=== PATIENT | female | born 1970 | race Two or more races ===

== ENCOUNTER 2019-01-18 18:01 | Emergency (ER) | payer OTHER ==
--- OUTSIDE RECORDS SUMMARY | 2019-01-18 18:07 | XMS REPORT | Continuity of Care Document ---
:1970 External Reference #:[id number] Author Name Lili Bennett Care Team Providers Name Role Phone Renata Alves MD Primary Care Physician Unavailable Payers Date Identification Numbers Payment Provider Subscriber Effective: 2012 Policy Number: [id number] [employer] Guillermo Reddy PayID: [id number] [address] [place] [address] Advance Directives Description No Information Available Problems Description No Active Problems Family History Date Family Member(s) Observation Comments : (age 45 Years) Father due to Cancer, Colon Onset: (age 67 Years) Mother Cancer Breast Mother 84 Mother Hypertension First Son 9 First Daughter 1 First Brother Alive And Well First Brother 45 First Sister Alive And Well First Sister 47 Social History Type Date Description Comments Sex Unknown Marital Status Occupation [employer]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, 3 ETOH Use Rarely consumes alcohol Tobacco Use Start: Unknown Patient has never smoked Smoking Status Reviewed: 12/29/18 Patient has never smoked Allergies, Adverse Reactions, Alerts Description No Known Drug Allergies Medications Active Medications SIG Qnty Indications Ordering Provider Date Valacyclovir HCL 1 by mouth 10tabs B00.1 Kriss Arreaga MD 12/29/2018 1gm every 12 hours Tablets till rash clears; max 3 days History Medications No Active Unknown 05/07/2016 - Medications 12/29/2018 Polymyxin 1-2 drops each eye 10ml 372.00 Dell German NP 01/05/2015 - B-Trimethoprim 4 times a day for 05/07/2016 7 days. if drastic 16405-3.1Unit/ML-% improvement within Solution 3 days, may decrease to twice daily. No Active Unknown 12/23/2014 - Medications 01/05/2015 No Active Unknown 05/12/2014 - Medications 05/12/2014 Ciprofloxacin HCL take one tablet 8tabs V65.49 Dell German, PING 05/12/2014 - twice a day for 2 06/11/2014 500mg Tablets days for severe diarrhea while travelling. No Active Unknown 09/28/2013 - Medications 09/28/2013 Doxycycline Hyclate 1 po bid x 7 days 14tabs 681.11 Sherri Peters, 2013 - DR Valadez 05/12/[address] Ortiz take 1 capsule by 40caps 465.9 Renata 08/21/2013 - 200mg mouth three times Cotton, M.D. 09/28/2013 Capsules a day if needed Azithromycin 2 tabs po on day 6tabs 465.9 Renata 08/21/2013 - 250mg 1; 1 tab po qd on Cotton, M.D. 09/28/2013 Tablets days 2-5 No Active Unknown 10/02/2012 - Medications 08/21/2013 Immunizations CPT Code Status Date Vaccine Lot # [id number] Given 08/05/2018 Influenza Virus Vaccine, Quadrivalent, Split, [id number] Preservative Free [id number] Given 06/08/2013 Flu Vaccine Split Virus Preservative Free For [id number] Indiv 3Yr Older [id number] Given 10/02/2012 Fluvirin Im 3Yrs And Older [id number] Vital Signs Date Vital Result Comment 12/29/2018 5:06pm Height 63 inches 5'3" Weight 111.00 lb Heart Rate 61 /min BP Systolic Sitting 104 mmHg BP Diastolic Sitting 66 mmHg Body Temperature 98.7 F O2 % BldC Oximetry 99 % BMI (Body Mass Index) 19.7 kg/m2 12/15/2018 4:58pm Height 63 inches 5'3" Weight 110.00 lb Heart Rate 58 /min BP Systolic Sitting 100 mmHg BP Diastolic Sitting 64 mmHg Body Temperature 98.8 F O2 % BldC Oximetry 99 % BMI (Body Mass Index) 19.5 kg/m2 08/05/2018 11:33am Height 63 inches 5'3" Weight 101.00 lb Heart Rate 63 /min BP Systolic Sitting 113 mmHg BP Diastolic Sitting 69 mmHg Body Temperature 98.0 F O2 % BldC Oximetry 96 % BMI (Body Mass Index) 17.9 kg/m2 05/02/2018 9:09am Height 63 inches 5'3" Weight 111.00 lb Heart Rate 62 /min BP Systolic Sitting 94 mmHg BP Diastolic Sitting 60 mmHg Respiratory Rate 16 /min O2 % BldC Oximetry 99 % on Ra BMI (Body Mass Index) 19.7 kg/m2 01/03/2017 8:39am Weight 113.50 lb Heart Rate 68 /min BP Systolic 100 mmHg BP Diastolic 58 mmHg Body Temperature 98.1 F O2 % BldC Oximetry 99 % 05/07/2016 1:31pm Height 62.75 inches 5'2.75" Weight 108.50 lb Heart Rate 71 /min BP Systolic 109 mmHg BP Diastolic 71 mmHg Body Temperature 97.9 F BMI (Body Mass Index) 19.4 kg/m2 01/05/2015 3:14pm Weight 115.50 lb Heart Rate 70 /min BP Systolic Sitting 110 mmHg BP Diastolic Sitting 69 mmHg Body Temperature 98.5 F 12/24/2014 2:57pm Height 63.75 inches 5'3.75" Weight 115.00 lb Heart Rate 56 /min BP Systolic 98 mmHg BP Diastolic 62 mmHg Body Temperature 99.0 F BMI (Body Mass Index) 19.9 kg/m2 05/12/2014 1:20pm Height 63.75 inches 5'3.75" Weight 108.00 lb Heart Rate 64 /min BP Systolic Sitting 106 mmHg BP Diastolic Sitting 60 mmHg Body Temperature 98.9 F BMI (Body Mass Index) 18.7 kg/m2 09/28/2013 4:27pm Weight 114.00 lb Heart Rate 64 /min BP Systolic 120 mmHg BP Diastolic 62 mmHg 08/21/2013 11:06am Weight 112.50 lb Heart Rate 72 /min BP Systolic 106 mmHg BP Diastolic 60 mmHg Body Temperature 98.3 F 06/08/2013 11:50am Weight 112.00 lb Heart Rate 60 /min BP Systolic 120 mmHg BP Diastolic 58 mmHg 10/02/2012 1:07pm Height 63 inches 5'3" Weight 113.25 lb Heart Rate 62 /min BP Systolic Sitting 114 mmHg BP Diastolic Sitting 60 mmHg BMI (Body Mass Index) 20.1 kg/m2 Results Test Date Facility Test Result H/L Range Note Comp Metabolic Panel 12/18/2018 [facility] Sodium 134 mmol/L Low 135-[address] [place] [address] [phone] Potassium 3.6 mmol/L N 3.5-5.0 Chloride 103 mmol/L N 101-111 Co2 Carbon Dioxide 26 mmol/L N 22-32 Anion Gap 5 mmol/L N 2-11 Glucose 123 mg/dL High 70-100 Blood Urea Nitrogen 13 mg/dL N 6-24 Creatinine 0.59 mg/dL N 0.51-0.95 BUN/Creatinine Ratio 22.0 High 8-20 Calcium 9.2 mg/dL N 8.6-10.3 Total Protein 7.1 g/dL N 6.4-8.9 Albumin 4.4 g/dL N 3.2-5.2 Globulin 2.7 g/dL N 2-4 Albumin/Globulin Ratio 1.6 N 1-3 Total Bilirubin 0.40 mg/dL N 0.2-1.0 Alkaline Phosphatase 38 U/L N 34-104 Alt 33 U/L N 7-52 Ast 20 U/L N 13-39 Egfr Non- 109.7 >60 Egfr 132.8 >60 1 Laboratory 12/18/2018 [facility] TSH (Thyroid 0.93 N 0.34- 5.60 test finding [address] Stim Horm) mcIU/mL [place], [place] [id number] [phone] Laboratory 06/26/2018 [facility] Surgical SEE RESULT 2, [address] [place] [address] [phone] Lipid Profile 04/29/2018 [facility] Triglycerides 87 mg/dL 4 (Trig/Chol/HDL [address] ) [place] [address] [phone] Cholesterol 145 mg/dL 5 HDL Cholesterol 58.5 mg/dL 6 LDL Cholesterol 69 mg/dL 7 Laboratory test 04/29/2018 [facility] Glucose 88 mg/dL N 70- 100 [address] [place] [address] [phone] Laboratory test 01/03/2017 [facility] Cytology SEE RESULT [address] [place] [address] [phone] HPV Rna Ww/Reflex Genotype Negative N Negative 10 Lipid Profile 04/20/2016 [facility] Triglycerides 67 mg/dL N 11 (Trig/Chol/HDL) [address] [place], [place] [address] [phone] Cholesterol 148 mg/dL N 12 HDL Cholesterol 67.3 mg/dL N 13 LDL Cholesterol 67 mg/dL N 14 Laboratory test 04/20/2016 [facility] Glucose 82 mg/dL N 70- 100 15 finding [address] [place] [address] [phone] Laboratory test 12/21/2014 [facility] Glucose 80 mg/dL N 70- 100 16, 17 finding [address] [place] [address] [phone] Lipid Profile 12/21/2014 [facility] Triglycerides 59 mg/dL N 18 (Trig/Chol/HDL) [address] [place] [address] [phone] Cholesterol 141 mg/dL N 19 HDL Cholesterol 59.0 mg/dL N 20 LDL Cholesterol 70 mg/dL N 21 Laboratory test 10/02/2012 [facility] Cytology RUN DATE: 22 finding 101 [facility] 10/03/ <[place] [address] NOTE> [phone] Laboratory test 09/18/2012 [facility] Glucose 81 mg/dL 70- 100 23 finding [address] [place] [address] [phone] Lipid Profile 09/18/2012 [facility] Triglycerides 55 mg/dL 40 -200 (Trig/Chol/HDL) [address] [place] [address] [phone] Cholesterol 164 mg/dL Less than 200 HDL Cholesterol 66 mg/dL High 40-60 24 Cholesterol/HDL Ratio 2.5 Average 1-4.44 LDL Cholesterol 87.0 mg/dL Less Than 100 25 1 Because ethnic data is not always readily available, this report includes an eGFR for both -Americans and non- Americans. The National Kidney Disease Education Program (NKDEP) does not endorse the use of the MDRD equation for patients that are not between the ages of 18 and 70, are , have extremes of body size, muscle mass, or nutritional status, or are non- or non-. According to the National Kidney Foundation, irrespective of diagnosis, the stage of the disease is based on the level of kidney function: Stage Description GFR(mL/min/1.73 m(2)) 1 Kidney damage with normal or decreased GFR 90 2 Kidney damage with mild decrease in GFR 60-89 3 Moderate decrease in GFR 30-59 4 Severe decrease in GFR 15-29 5 Kidney failure <15 (or dialysis) 2 [id number] 3 SEE RESULT BELOW Name: ELLIE AQUINO : [address]: Magda Contreras MD Acct: [id number] Unit: [id number] AGE: 48 Location: [facility] Re06/26/18 SEX: F Status: DEP REF SPEC: [id number] DARIO: 06/26/18-[address] [facility] [address]: Magda Post MD REQ: [id number] RECD: 06/26/189136 STATUS: JERAMY ZHONG DR: Renata Alves MD _ ORDERED: LEVEL 4/2 COMMENTS: [id number] FINAL DIAGNOSIS 1. Colon, transverse, biopsy: -- Tubular adenoma. -- No high grade dysplasia or malignancy. 2. Colon, rectum, biopsy: -- Hyperplastic polyp. CLINICAL HISTORY Father with colon cancer POST-OPERATIVE DIAGNOSIS Colonoscopy: to cecum; seeds but overall good; 4 mm transverse status post cold snare; 2 mm rectal status post jumbo; small internal hemorrhoids GROSS DESCRIPTION 1. The specimen is received in formalin labeled, Transverse Colon Polyp, and consists of a 0.3 x 0.2 x 0.1 cm aggregate of escobedo irregular soft tissue fragments which is submitted entirely in one cassette. 2. The specimen is received in formalin labeled, Biopsy Rectal Polyp, and consists of a 0.2 by less than 0.1 x 0.1 cm escobedo-pink irregular soft tissue fragment which is submitted entirely in one cassette. Signed by and Reported on: Chiqui Mayers MD 06/27/18 1302 END OF REPORT DEPARTMENT OF PATHOLOGY, [address] [place] [address] Tray Arroyo M.D. Director [facility] # [id number] 4 Desirable: <150 Borderline High: 150-199 High: 200-499 Very High: >500 5 Desirable: <200 Borderline High: 200-239 High: >239 6 Low: <40 Desirable: 40-60 High: >60 7 Desirable: <100 Near Optimal: 100-129 Borderline High: 130-159 High: 160-189 Very High: >189 8 FASTING 10 HOUR 9 SEE RESULT BELOW Name: ELLIE AQUINO : [address]: Renata Alves MD Acct: [id number] Unit: [id number] AGE: 46 Location: [facility] Re01/03/17 SEX: F Status: REG REF SPEC: [id number] DARIO: 01/03/[address]: Renata Alves MD REQ: [id number] RECD: 01/03/17 STATUS: SOUT _ ORDERED: TP IMAGE ANAL, HPV/Thin Prep, HPV 16/18 GENE COMMENTS: [id number] FINAL DIAGNOSIS Negative for Intraepithelial lesion or Malignancy A. Ectocervical/Endocervical Specimen Adequacy: Satisfactory of evaluation Transformation zone component identified Patient Information: HPV: High risk HPV RNA testing regardless of pap results. HPV 16/18 Genotype Reflex Actual Specimen Date: 01/03/17 Last Menstrual Date: 11/12/16 Spec Date if unknown: 2012 ?: N Post Menopausal?: N Hysterectomy?: N Previous Abnormal Pap Smears?:N Date Time Test Result Flag (u) Normal Range 01/03/17 0913 HPV RNA RFLX GE Negative Negative The high-risk HPV types detected by the assay include: 16, 18, 31, 33, 35, 39, 45, 51, 52, 56, 58, 59, 66, and 68. Signed (signature on file) AZUL Sandra(ASCP) 01/04 1600 This Pap test was evaluated with the assistance of the COM DEVPrep Test Imaging System. Due to cytologic findings at the bellstaff microscope, comprehensive manual rescreening by a Plan Manager may be required. The Pap Smear is a screening test designed to aid in the detection of premalignant and malignant conditions of the uterine cervix. It is not a diagnostic procedure and should not be used as the sole means of detecting cervical cancer. Both false- positive and false- negative reports do occur. Depending on your risk status, a Pap smear should be obtained and evaluated every 1-3 years. END OF REPORT * ML=Testing performed at Main Lab DEPARTMENT OF PATHOLOGY, [address] [place] [address] RUN DATE: 01/04/17 [facility] LAB LIVE PAGE 1 Patient: MILESELLIE [id number] (Continued) Tray Arroyo M.D. Director [facility] # [id number] 10 The high-risk HPV types detected by the assay include: 16, 18, 31, 33, 35, 39, 45, 51, 52, 56, 58, 59, 66, and 68. 11 Desirable <150 Borderline high 150-199 High 200-499 Very High >500 12 Desirable <200 Borderline high 200-239 High >239 13 Low <40 Desirable: 40-60 High: >60 14 Desirable: <100 mg/dL Near Optimal: 100-129 mg/dL Borderline High: 130-159 mg/dL High: 160-189 mg/dL Very High: >189 mg/dL 15 FASTING 12 HOUR 16 PT IS FASTING 17 PT IS FASTING 18 Desirable <150 Borderline high 150-199 High 200-499 Very High >500 19 Desirable <200 Borderline high 200-239 High >239 20 Low <40 Desirable: 40-60 High: >60 21 Desirable: <100 mg/dL Near Optimal: 100-129 mg/dL Borderline High: 130-159 mg/dL High: 160-189 mg/dL Very High: >189 mg/dL 22 RUN DATE: 10/03/12 [facility] LAB LIVE PAGE 1 RUN TIME: [address] [place] [address] Specimen Inquiry Name: ELLIE AQUINO : [address]: Amie Pedroza MD Acct: [id number] Unit: [id number] AGE: 42 Location: [facility]: 10/02/12 SEX: F Status: REG REF SPEC: [id number] DARIO: 10/02/12-[address] [facility] [address]: Amie Pedroza MD REQ: [id number] RECD: 10/03/12 STATUS: SOUT _ ORDERED: IMAGE ANALYSIS FINAL DIAGNOSIS Negative for Intraepithelial lesion or Malignancy A. Ectocervical/Endocervical Specimen Adequacy: Satisfactory of evaluation Transformation zone component identified Patient Information: HPV: Thin Layer Pap Test w/reflex to high risk HPV DNA testing when ASCUS Actual Specimen Date: 10/02/12 Last Menstrual Date: 09/18/12 Spec Date if unknown: 10/2011 Cautery: N IUD: N Lesion, grossly demonstrate: N ?: N Post Menopausal?: N Hysterectomy?: N Previous Abnormal Pap Smears?:N Signed (signature on file) AZUL Robert (ASCP) 10/03 1312 This Pap test was evaluated with the assistance of the COM DEVPrep Test Imaging System. Due to cytologic findings at the bellstaff microscope, comprehensive manual rescreening by a Plan Manager may be required. The Pap Smear is a screening test designed to aid in the detection of premalignant and malignant conditions of the uterine cervix. It is not a diagnostic procedure and should not be used as the sole means of detecting cervical cancer. Both false- positive and false- negative reports do occur. Depending on your risk status, a Pap smear shoudl be obtained and evaluated every 1-3 years. END OF REPORT * ML=Testing performed at Main Lab DEPARTMENT OF PATHOLOGY, [address] [place] [address] Tray Arroyo M.D. Director [facility] Permit #[id number] Fasting 24 HDL Interpretation: Undesirable: High Risk: Less than 40 MG/DL Desirable: Low Risk: Greater than 60 MG/DL 25 LDL Interpretation: Low Risk Optimal Level: LDL Less than 100 MG/DL Near or Above Optimal: LDL 100-129 MG/DL Borderline High Risk: LDL 130-159 MG/DL High Risk: LDL 160-189 MG/DL Very High Risk: LDL Greater than 189 MG/DL Procedures Date Code Description Status 08/08/2018 [id number] Mammogram Completed 06/26/2018 [id number] Colonoscopy Completed 02/27/2017 80348621 Mammogram Completed 07/13/2016 93530193 Mammogram Completed 05/17/2015 29846839 Mammogram Completed 09/08/2014 49057862 Mammogram Completed 08/02/2014 83528098 Mammogram Completed 07/10/2013 00153730 Colonoscopy Completed 07/06/2013 78328788 Mammogram Completed Encounters Type Date Location Provider Dx Diagnosis Office Visit 12/15/2018 Wero Arreaga MD K29.00 Acute gastritis 5:00p Medicine without bleeding N92.6 Irregular menstruation, unspecified Office Visit 08/05/2018 11:30a Wero Arreaga, N63.24 Unspecified lump Medicine in the left breast, lower inner quadrant Z23 Encounter for immunization N63.21 Unspecified lump in the left breast, upper outer quadrant Office Visit 05/02/2018 9:00a Wero Yanez Z00.00 Encntr for Rosalio Alves M.D. general adult medical exam w/o abnormal findings Z12.11 Encounter for screening for malignant neoplasm of colon R92.2 Inconclusive mammogram Office Visit 01/03/2017 8:40a Wero Yanez Z12.4 Encounter for Rosalio Alves M.D. screening for malignant neoplasm of cervix R92.2 Inconclusive mammogram Z12.31 Encntr screen mammogram for malignant neoplasm of breast Office Visit 05/07/2016 11:00a [facility] Renata Z00.00 Encntr for Rosalio Alves M.D. general adult medical exam w/o abnormal findings R92.2 Inconclusive mammogram Office Visit 01/05/2015 [facility] Dell German NP 372.00 Conjunctivitis Acute 3:20p Medicine Unspec Office Visit 12/24/2014 [facility] Renata V70.0 Examination General 3:00p Rosalio Alves M.D. Medical Routine AT Health Care Facility 443.0 Raynauds Syndrome Office Visit 05/12/2014 1:30p [facility] Dell German NP V65.49 Counseling Other Medicine Spec Office Visit 09/28/2013 4:20p [facility] Sherri Peters, 681.11 [facility] Paronychia Toe Office Visit 08/21/2013 11:00a [facility] Renata 465.9 URI Upper Rosalio Alves M.D. Respiratory Infections Acute Unspec Sites Office Visit 06/08/2013 11:40a [facility] Amie Pedroza, 611.9 Breast Disorders Medicine Jane, FACP Unspec V04.81 Need For Prophylactic Vaccination & Inoculation/Influenza Office Visit 10/02/2012 1:00p [facility] Amie Pedroza, V70.0 Examination Medicine Jane, FACP General Medical Routine AT Health Care Facility V72.31 Routine Double Corner Cutter Examination 272.0 Hypercholesterolemia Pure 611.9 Breast Disorders Unspec V04.81 Need For Prophylactic Vaccination & Inoculation/Influenza Plan of Treatment Future Appointment(s):05/07/2019 9:20 am - Renata Alves M.D. at [facility] Raifqjvx69/06/2019 - Kriss Arreaga MDK29.00 Acute gastritis without bleedingComments:Continue prilosec 20mg rtsleG27.1 Herpesviral vesicular dermatitisNew Medication:Valacyclovir HCL 1 gm - 1 by mouth every 12 hours till rash clears; max 3 days
--- OUTSIDE RECORDS SUMMARY | 2019-01-18 18:07 | XMS REPORT | Continuity of Care Document ---
:1970 External Reference #:[id number] Author Name OzChuye Care Team Providers Name Role Phone Renata Alves MD Primary Care Physician Unavailable Payers Date Identification Numbers Payment Provider Subscriber Effective: 2012 Policy Number: [id number] [employer] Guillermo Reddy PayID: [id number] [address] [place] [address] Family History Date Family Member(s) Observation Comments : (age 45 Years) Father due to Cancer, Colon Onset: (age 67 Years) Mother Cancer Breast Mother 84 Mother Hypertension First Son 9 First Daughter 1 First Brother Alive And Well First Brother 45 First Sister Alive And Well First Sister 47 Social History Type Date Description Comments Sex Unknown Marital Status Occupation [employer]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, 3 ETOH Use Rarely consumes alcohol Tobacco Use Start: Unknown Patient has never smoked Smoking Status Reviewed: 01/08/19 Patient has never smoked Allergies, Adverse Reactions, Alerts Description No Known Drug Allergies Medications Active Medications SIG Qnty Indications Ordering Provider Date Valacyclovir HCL 1 by mouth 10tabs B00.1 Kriss Arreaga MD 12/29/2018 1gm every 12 hours Tablets till rash clears; max 3 days Omeprazole 1 by mouth Unknown 10mg Capsules every day DR History Medications No Active Unknown 05/07/2016 - Medications 12/29/2018 Polymyxin 1-2 drops each eye 10ml 372.00 Dell German NP 01/05/2015 - B-Trimethoprim 4 times a day for 05/07/2016 7 days. if drastic 76370-8.1Unit/ML-% improvement within Solution 3 days, may decrease to twice daily. No Active Unknown 12/23/2014 - Medications 01/05/2015 No Active Unknown 05/12/2014 - Medications 05/12/2014 Ciprofloxacin HCL take one tablet 8tabs V65.49 Dell German NP 05/12/2014 - twice a day for 2 [...] CPT Code Status Date Vaccine Lot # [id number] Given 08/05/2018 Influenza Virus Vaccine, Quadrivalent, Split, [id number] Preservative Free 53514 Given 06/08/2013 Flu Vaccine Split Virus Preservative Free For [id number] Indiv 3Yr Older [id number] Given 10/02/2012 Fluvirin Im 3Yrs And Older [id number] Vital Signs Date Vital Result Comment 01/08/2019 2:32pm Height 63 inches 5'3" Weight 112.00 lb Heart Rate 68 /min BP Systolic Sitting 118 mmHg BP Diastolic Sitting 73 mmHg Body Temperature 98.4 F O2 % BldC Oximetry 100 % BMI (Body Mass Index) 19.8 kg/m2 12/29/2018 5:06pm Height 63 inches 5'3" Weight [...] Date Facility Test Result H/L Range Note Xray 01/08/2019 [facility] US Transvaginal <pending> [place] [address] [phone] Comp Metabolic 12/18/2018 [facility] Sodium 134 mmol/L Low 135 -145 [place] [address] [phone] Potassium 3.6 mmol/L N 3.5-5.0 Chloride 103 [...] >60 Egfr 132.8 >60 1 Laboratory 12/18/2018 [facility] TSH (Thyroid 0.93 N 0.34- 5.60 test finding Stim Horm) mcIU/mL [place], [place] [address]83 [phone] Laboratory 06/26/2018 [facility] Surgical SEE RESULT 2, 3 test finding [place] [address] [phone] Lipid Profile 04/29/2018 [facility] Triglycerides 87 mg/dL 4 (Trig/Chol/HDL ) [place] [address] [phone] Cholesterol 145 mg/dL 5 HDL Cholesterol 58.5 mg/dL 6 LDL Cholesterol 69 mg/dL 7 Laboratory test 04/29/2018 [facility] Glucose 88 mg/dL N 70- 100 8 [place] [address] [phone] Laboratory test 01/03/2017 [facility] Cytology SEE RESULT [address] [place] [address] [phone] HPV Rna Ww/Reflex Genotype Negative N Negative 10 Laboratory test 04/20/2016 [facility] Glucose 82 mg/dL N 70- 100 11 finding [address] [place] [address] [phone] Lipid Profile 04/20/2016 [facility] Triglycerides 67 mg/dL N 12 (Trig/Chol/HDL) [address] [place] [address] [phone] Cholesterol 148 mg/dL N 13 HDL Cholesterol 67.3 mg/dL N 14 LDL Cholesterol 67 mg/dL N 15 Lipid Profile 12/21/2014 [facility] Triglycerides 59 mg/dL N 16, 17 (Trig/Chol/HDL) [address] [place] [address] [phone] Cholesterol 141 mg/dL N 18 HDL Cholesterol 59.0 mg/dL N 19 LDL Cholesterol 70 mg/dL N 20 Laboratory test 12/21/2014 [facility] Glucose 80 mg/dL N 70- 100 21 finding [address] [place] [address] [phone] Laboratory test 10/02/2012 [facility] Cytology RUN DATE: 22 finding 101 [facility] 10/03/ <[place] [address] NOTE> [phone] Laboratory test 09/18/2012 [facility] Glucose 81 mg/dL 70- 100 23 finding [address] [place] [address] [phone] Lipid Profile 09/18/2012 [facility] Triglycerides 55 mg/dL 40 -200 (Trig/Chol/HDL) [address] [place] [address] [phone] Cholesterol 164 mg/dL Less than 200 HDL [...] 5 Kidney failure <15 (or dialysis) 2 [id number] 3 SEE RESULT BELOW Name: ELLIE AQUINO : [address]: Magda Contreras MD Acct: [id number] Unit: [id number] AGE: 48 Location: [facility] Re06/26/18 SEX: F Status: DEP REF SPEC: [id number] DARIO: 06/26/18-[address] [facility] [address]: Magda Post MD REQ: [id number] RECD: 06/26/18-0553 STATUS: JERAMY ZHONG DR: Renata Alves MD _ ORDERED: LEVEL 4/2 COMMENTS: [id number] FINAL DIAGNOSIS 1. Colon, transverse, biopsy: -- [...] 1302 END OF REPORT DEPARTMENT OF PATHOLOGY, [address] [place] [address] Tray Arroyo M.D. Director [facility] # [id number] 4 Desirable: <150 Borderline High: 150-199 High: 200-499 Very High: >500 5 Desirable: <200 Borderline High: 200-239 High: >239 6 Low: <40 Desirable: 40-60 High: >60 7 Desirable: <100 Near Optimal: 100-129 Borderline High: 130-159 High: 160-189 Very High: >189 8 FASTING 10 HOUR 9 SEE RESULT BELOW Name: ELLIE AQUINO : [address]: Renata Alves MD Acct: [id number] Unit: [id number] AGE: 46 Location: [facility] Re01/03/17 SEX: F Status: REG REF SPEC: [id number] DARIO: 01/03/[address] [facility] [address]: Renata Alves MD REQ: [id number] RECD: 01/03/17 STATUS: SOUT _ ORDERED: TP IMAGE ANAL, HPV/Thin Prep, HPV 16/18 GENE COMMENTS: [id number] FINAL DIAGNOSIS Negative for Intraepithelial lesion or [...] was evaluated with the assistance of the Cigital Test Imaging System. Due to cytologic findings at the heel former microscope, comprehensive manual rescreening by a Internal Controls Specialist may be required. The Pap Smear is [...] performed at Main Lab DEPARTMENT OF PATHOLOGY, [address] [place] [address] RUN DATE: 01/04/17 [facility] LAB LIVE PAGE 1 Patient: ELLIE AQUINO [id number] (Continued) Tray Arroyo M.D. Director [facility] # [id number] 10 The high-risk HPV types detected by the assay include: 16, 18, 31, 33, 35, 39, 45, 51, 52, 56, 58, 59, 66, and 68. 11 FASTING 12 HOUR 12 Desirable <150 Borderline high 150-199 High 200-499 Very High >500 13 Desirable <200 Borderline high 200-239 High >239 14 Low <40 Desirable: 40-60 High: >60 15 Desirable: <100 mg/dL Near Optimal: 100-129 mg/dL Borderline High: 130-159 mg/dL High: 160-189 mg/dL Very High: >189 mg/dL 16 PT IS FASTING 17 Desirable <150 Borderline high 150-199 High 200-499 Very High >500 18 Desirable <200 Borderline high 200-239 High >239 19 Low <40 Desirable: 40-60 High: >60 20 Desirable: <100 mg/dL Near Optimal: 100-129 mg/dL Borderline High: 130-159 mg/dL High: 160-189 mg/dL Very High: >189 mg/dL 21 PT IS FASTING 22 RUN DATE: 10/03/12 [facility] LAB LIVE PAGE 1 RUN TIME: [address] [place] [address] Specimen Inquiry Name: ELLIE AQUINO : [address]: Amie Pedroza MD Acct: [id number] Unit: [id number] AGE: 42 Location: [facility] Re10/02/12 SEX: F Status: REG REF SPEC: [id number] DARIO: 10/02/12-[address] [facility] [address]: Amie Pedroza MD REQ: [id number] RECD: 10/03/12 STATUS: SOUT _ ORDERED: IMAGE [...] was evaluated with the assistance of the SymphogenPrep Test Imaging System. Due to cytologic findings at the heel former microscope, comprehensive manual rescreening by a Internal Controls Specialist may be required. The Pap Smear is [...] performed at Main Lab DEPARTMENT OF PATHOLOGY, [address] [place] [address] Tray Arroyo M.D. Director [facility] Permit #[id number] 23 Fasting 24 HDL Interpretation: Undesirable: High Risk: Less than 40 MG/DL Desirable: Low Risk: Greater than 60 MG/DL 25 LDL Interpretation: Low Risk Optimal Level: LDL Less than 100 MG/DL Near or Above Optimal: LDL 100-129 MG/DL Borderline High Risk: LDL 130-159 MG/DL High Risk: LDL 160-189 MG/DL Very High Risk: LDL Greater than 189 MG/DL Procedures Date Code Description Status 08/08/2018 [id number] Mammogram Completed 06/26/2018 [id number] Colonoscopy Completed 02/27/2017 [id number] Mammogram Completed 07/13/2016 73475182 Mammogram Completed 05/17/2015 44778278 Mammogram Completed 09/08/2014 83284012 Mammogram Completed 08/02/2014 92938394 Mammogram Completed 07/10/2013 52819956 Colonoscopy Completed 07/06/2013 05855804 Mammogram Completed Encounters Type Date Location Provider Dx Diagnosis Office Visit 12/29/2018 Wero Arreaga MD K29.00 Acute gastritis 5:00p Medicine without bleeding B00.1 Herpesviral vesicular dermatitis N92.6 Irregular menstruation, unspecified Office Visit 12/15/2018 5:00p Wero Arreaga K29.00 Acute gastritis Medicine MD without bleeding N92.6 Irregular menstruation, unspecified Office Visit 08/05/2018 11:30a [facility] Gregory Krissmark Arreaga, N63.24 Unspecified lump Medicine MD in the left breast, lower inner quadrant Z23 Encounter for immunization N63.21 Unspecified lump in the left breast, upper outer quadrant Office Visit 05/02/2018 9:00a [facility] Internal Renata Z00.00 Encntr for Rosalio Alves M.D. general adult medical exam w/o abnormal findings Z12.11 Encounter for screening for malignant neoplasm of colon R92.2 Inconclusive mammogram Office Visit 01/03/2017 8:40a [facility] Internal Renata Z12.4 Encounter for Medicine Jane Alves screening for malignant neoplasm of cervix R92.2 Inconclusive mammogram Z12.31 Encntr screen mammogram for malignant neoplasm of breast Office Visit 05/07/2016 11:00a [facility] Internal Renata Z00.00 Encntr for Rosalio Alves M.D. general adult medical exam w/o abnormal findings R92.2 Inconclusive mammogram Office Visit 01/05/2015 [facility] Internal Dell German NP 372.00 Conjunctivitis Acute 3:20p Medicine Unspec Office Visit 12/24/2014 [facility] Internal Renata V70.0 Examination General 3:00p Rosalio Alves M.D. Medical Routine AT Health Care Facility 443.0 Raynauds Syndrome Office Visit 05/12/2014 1:30p [facility] Internal Dell German NP V65.49 Counseling Other Medicine Spec Office Visit 09/28/2013 4:20p [facility] Internal Sherri Peters, 681.11 [facility] Paronychia Toe Office Visit 08/21/2013 11:00a [facility] Internal Renata 465.9 URI Upper Rosalio Alves M.D. Respiratory Infections Acute Unspec Sites Office Visit 06/08/2013 11:40a [facility] Internal Amie Pedroza, 611.9 Breast Disorders Medicine Jane, FACP Unspec V04.81 Need For Prophylactic Vaccination & Inoculation/Influenza Office Visit 10/02/2012 1:00p [facility] Internal Amie Pedroza, V70.0 Examination Medicine Jane, FACP General Medical Routine AT Health Care Facility V72.31 Routine Tandem Operator Examination 272.0 Hypercholesterolemia Pure 611.9 Breast Disorders Unspec V04.81 Need For Prophylactic Vaccination & Inoculation/Influenza Plan of Treatment Future Appointment(s):01/29/2019 2:00 pm - Renata Alves M.D. at [facility] Internal Ikxzcnlu34/12/2019 9:20 am - Renata Alves M.D. at [facility] Internal Qkakxmmx69/16/2019 - Renata Alves M.D.R19.07 Generalized intra-abdominal and pelvic swelling, mass and luComments:Start MiraLaxPush waterFollow up:3 weeks
--- OUTSIDE RECORDS SUMMARY | 2019-01-18 18:07 | XMS REPORT | Continuity of Care Document ---
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 if drastic 99965-9.1Unit/ML-% improvement within Solution 3 days, may decrease [...] CPT Code Status Date Vaccine Lot # 32802 Given 08/05/2018 Influenza Virus Vaccine, Quadrivalent, Split, 74bl5 Preservative Free 94633 Given 06/08/2013 Flu Vaccine Split Virus Preservative Free For [id number] Indiv 3Yr Older Q2037 Given 10/02/2012 Fluvirin Im 3Yrs And Older [id number] Vital Signs Date Vital Result Comment 12/29/2018 [...] H/L Range Note Comp Metabolic Panel 12/18/2018 [facility] Sodium 134 mmol/L Low 135-[address] [place] [address] [phone] Potassium 3.6 mmol/L N 3.5-5.0 Chloride 103 [...] >60 Egfr 132.8 >60 1 Laboratory 12/18/2018 [facility] TSH (Thyroid 0.93 N 0.34- 5.60 test finding [address] Stim Horm) mcIU/mL [place], [place] [address] [phone] Laboratory 06/26/2018 [facility] Surgical SEE RESULT 2, [address] Interface [place] [address] [phone] Lipid Profile 04/29/2018 [facility] Triglycerides 87 mg/dL 4 (Trig/Chol/HDL [address] ) [place] [address] [phone] Cholesterol 145 mg/dL 5 HDL Cholesterol 58.5 mg/dL 6 LDL Cholesterol 69 mg/dL 7 Laboratory test 04/29/2018 [facility] Glucose 88 mg/dL N 70- 100 [address] [place] [address] [phone] Laboratory test 01/03/2017 [facility] Cytology SEE RESULT [address] [place] [address] [phone] HPV Rna Ww/Reflex Genotype Negative N Negative 10 Lipid Profile 04/20/2016 [facility] Triglycerides 67 mg/dL N 11 (Trig/Chol/HDL) [address] [place], [place] [address] [phone] Cholesterol 148 mg/dL N 12 HDL Cholesterol 67.3 mg/dL N 13 LDL Cholesterol 67 mg/dL N 14 Laboratory test 04/20/2016 [facility] Glucose 82 mg/dL N 70- 100 15 finding [address] [place] [address] [phone] Laboratory test 12/21/2014 [facility] Glucose 80 mg/dL N 70- 100 16, 17 finding [address] [place] [address] [phone] Lipid Profile 12/21/2014 [facility] Triglycerides 59 mg/dL N 18 (Trig/Chol/HDL) [address] [place] [address] [phone] Cholesterol 141 mg/dL N 19 HDL Cholesterol 59.0 mg/dL N 20 LDL Cholesterol 70 mg/dL N 21 Laboratory test 10/02/2012 [facility] Cytology RUN DATE: 22 finding 101 [facility] 10/03/ <[place] [address] NOTE> [phone] Laboratory test 09/18/2012 [facility] Glucose 81 mg/dL 70- 100 23 finding [address] [place] [address] [phone] Lipid Profile 09/18/2012 [facility] Triglycerides 55 mg/dL 40 -200 (Trig/Chol/HDL) [address] [place] [address] [phone] Cholesterol 164 mg/dL Less than 200 HDL [...] 5 Kidney failure <15 (or dialysis) 2 [id number] 3 SEE RESULT BELOW Name: ELLIE AQUINO : [address]: Magda Contreras MD Acct: [id number] Unit: [id number] AGE: 48 Location: [facility] Re06/26/18 SEX: F Status: DEP REF SPEC: [id number] DARIO: 06/26/18-[address] [facility] [address]: Magda Post MD REQ: [id number] RECD: 06/26/183493 STATUS: JERAMY ZHONG DR: Renata Alves MD _ ORDERED: LEVEL 4/2 COMMENTS: [id number] FINAL DIAGNOSIS 1. Colon, transverse, biopsy: -- [...] 1302 END OF REPORT DEPARTMENT OF PATHOLOGY, [address] [place] [address] Tray Arroyo M.D. Director [facility] # [id number] 4 Desirable: <150 Borderline High: 150-199 High: 200-499 Very High: >500 5 Desirable: <200 Borderline High: 200-239 High: >239 6 Low: <40 Desirable: 40-60 High: >60 7 Desirable: <100 Near Optimal: 100-129 Borderline High: 130-159 High: 160-189 Very High: >189 8 FASTING 10 HOUR 9 SEE RESULT BELOW Name: ELLIE AQUINO : [address]: Renata Alves MD Acct: [id number] Unit: [id number] AGE: 46 Location: [facility] Re01/03/17 SEX: F Status: REG REF SPEC: [id number] DARIO: 01/03/[address]: Renata Alves MD REQ: [id number] RECD: 01/03/17 STATUS: SOUT _ ORDERED: TP IMAGE ANAL, HPV/Thin Prep, HPV 16/18 GENE COMMENTS: [id number] FINAL DIAGNOSIS Negative for Intraepithelial lesion or [...] was evaluated with the assistance of the Community Veterinary PartnersPrep Test Imaging System. Due to cytologic findings at the shear tender microscope, comprehensive manual rescreening by a Med Asst may be required. The Pap Smear is [...] performed at Main Lab DEPARTMENT OF PATHOLOGY, [address] [place] [address] RUN DATE: 01/04/17 [facility] LAB LIVE PAGE 1 Patient: MILESELLIE [id number] (Continued) Tray Arroyo M.D. Director [facility] # [id number] 10 The high-risk HPV types detected by [...] High: >189 mg/dL 22 RUN DATE: 10/03/12 [facility] LAB LIVE PAGE 1 RUN TIME: [address] [place] [address] Specimen Inquiry Name: ELLIE AQUINO : [address]: Amie Pedroza MD Acct: [id number] Unit: [id number] AGE: 42 Location: [facility]: 10/02/12 SEX: F Status: REG REF SPEC: [id number] DARIO: 10/02/12-[address] [facility] [address]: Amie Pedroza MD REQ: [id number] RECD: 10/03/12 STATUS: SOUT _ ORDERED: IMAGE [...] was evaluated with the assistance of the Community Veter[employer] PartnersPrep Test Imaging System. Due to cytologic findings at the shear tender microscope, comprehensive manual rescreening by a Med Asst may be required. The Pap Smear is [...] performed at Main Lab DEPARTMENT OF PATHOLOGY, [address] [place] [address] Tray Arroyo M.D. Director [facility] Permit #[id number] 23 Fasting 24 HDL Interpretation: Undesirable: High Risk: Less than 40 MG/DL Desirable: Low Risk: Greater than 60 MG/DL 25 LDL Interpretation: Low Risk Optimal Level: LDL Less than 100 MG/DL Near or Above Optimal: LDL 100-129 MG/DL Borderline High Risk: LDL 130-159 MG/DL High Risk: LDL 160-189 MG/DL Very High Risk: LDL Greater than 189 MG/DL Procedures Date Code Description Status 08/08/2018 [id number] Mammogram Completed 06/26/2018 22579013 Colonoscopy Completed 02/27/2017 [id number] Mammogram Completed 07/13/2016 05430937 Mammogram Completed 05/17/2015 24895249 Mammogram Completed 09/08/2014 57254380 Mammogram Completed 08/02/2014 95670164 Mammogram Completed 07/10/2013 74820994 Colonoscopy Completed 07/06/2013 73064122 Mammogram Completed Encounters Type Date Location Provider Dx Diagnosis Office Visit 12/29/2018 Wero Arreaga MD K29.00 Acute gastritis 5:00p Medicine without bleeding B00.1 Herpesviral vesicular dermatitis N92.6 Irregular menstruation, unspecified Office Visit 12/15/2018 5:00p [facility] Internal Kriss Arreaga K29.00 Acute gastritis Medicine MD without bleeding N92.6 Irregular menstruation, unspecified Office Visit 08/05/2018 11:30a [facility]ero Arreaga N63.24 Unspecified lump Medicine in the left breast, lower inner quadrant Z23 Encounter for immunization N63.21 Unspecified lump in the left breast, upper outer quadrant Office Visit 05/02/2018 9:00a [facility] Yanez Z00.00 Encntr for Rosalio Alves M.D. general adult medical exam w/o abnormal findings Z12.11 Encounter for screening for malignant neoplasm of colon R92.2 Inconclusive mammogram Office Visit 01/03/2017 8:40a [facility] Internal Renata Z12.4 Encounter for Rosalio Alves M.D. screening for malignant neoplasm of cervix R92.2 Inconclusive mammogram Z12.31 Encntr screen mammogram for malignant neoplasm of breast Office Visit 05/07/2016 11:00a [facility] Internal Renata Z00.00 Encntr for Rosalio Alves M.D. general adult medical exam w/o abnormal findings R92.2 Inconclusive mammogram Office Visit 01/05/2015 [facility] Internal Dell German NP 372.00 Conjunctivitis Acute 3:20p Medicine Unspec Office Visit 12/24/2014 [facility] Internal Renata V70.0 Examination General 3:00p Rosalio Alves M.D. Medical Routine AT Health Care Facility 443.0 Raynauds Syndrome Office Visit 05/12/2014 1:30p [facility] Internal Dell German NP V65.49 Counseling Other Medicine Spec Office Visit 09/28/2013 4:20p [facility] Internal Sherri Peters, 681.11 Onychia & Medicine N.P. Paronychia Toe Office Visit 08/21/2013 11:00a [facility] Internal Renata 465.9 URI Upper Rosalio Alves M.D. 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 at [facility] Internal Cconyywf06/06/2019 - Kriss Arreaga MDK29.00 Acute gastritis without bleedingComments:Continue prilosec 20mg mndooO57.1 Herpesviral vesicular dermatitisNew Medication:Valacyclovir HCL 1 gm - 1 by mouth every 12 hours till rash clears; max 3 daysN92.6 Irregular menstruation, unspecifiedComments: Perimenopause. Continue to monitor
--- NOTE | 2019-01-18 18:16 | UC ---
Complaint Female HPI - HPI Summary HPI Summary: 48 yo female presents requesting test. She tells me that about a month and half ago she went to her PCP for abdominal bloating, nausea, and vaginal spotting. She was given omeprazole, which helped. Since that time she has noticed that her lower abdomen is enlarging. She took a urine test and found it to be positive x2. She is here concerned that she is . She has had no more vaginal bleeding. Denies abdominal pain, vomiting , dysuria, or fevers. LMP was in 09/2018 - History Of Current Complaint Stated Complaint: TEST Time Seen by Provider: 01/18/19 18:16 Hx Obtained From: Patient Onset/Duration: Gradual Onset - Allergies/Home Medications Allergies/Adverse Reactions: Allergies Allergy/AdvReac Type Severity Reaction Status Date / Time No Known Allergies Allergy Verified 01/18/19 18:23 Home Medications: Home Medications Omeprazole CAP (NF) [Prilosec CAP* 20 MG] 20 mg PO DAILY 01/18/19 [History Confirmed 01/18/19] PMH/Surg Hx/FS Hx/Imm Hx - Additional Past Medical History Additional PMH: None - Surgical History Surgical History: None - Social History Lives: With Family Alcohol Use: Occasionally Substance Use Type: None Smoking Status (MU): Never Smoked Tobacco Review of Systems All Other Systems Reviewed And Are Negative: Yes Constitutional: Positive: Other - Positive test Skin: Positive: Negative Respiratory: Positive: Negative Cardiovascular: Positive: Negative Gastrointestinal: Positive: Negative Neurovascular: Positive: Negative Neurological: Positive: Negative Psychological: Positive: Negative Physical Exam - Summary Physical Exam Summary: GENERAL: NAD. WDWN. No pain distress. SKIN: No streaking, bleeding, or drainage. NECK: Supple. Nontender. No lymphadenopathy. CHEST: No accessory muscle use. Breathing comfortably and in no distress. CV: Pulses intact. Cap refill <2seconds ABDOMEN: Gravid appearing lower abdomen. NTTP. Positive bowel sounds. NEURO: Alert. PSYCH: Age appropriate behavior. Triage Information Reviewed: Yes Vital Signs: Vital Signs: Temp Pulse Resp BP Pulse Ox 98.2 F 63 14 114/63 100 01/18/19 18:18 01/18/19 18:18 01/18/19 18:18 01/18/19 18:18 01/18/19 18:18 Laboratory Tests 01/18/19 18:33 POC Ur Test Positive A Vital Signs Reviewed: Yes Complaint Female Dx - Course Course Of Treatment: POC positive. Will draw for blood HCG and have her f/u with OBGYN for further discussion of options and eval. - Differential Dx/Diagnosis Provider Diagnosis: Discharge - Sign-Out/Discharge Documenting (check all that apply): Patient Departure All imaging exams completed and their final reports reviewed: No Studies - Discharge Plan Condition: Stable Disposition: HOME Patient Education Materials: (ED) Referrals: Renata Alves MD [Primary Care Provider] - Rosalia Benavides MD [Medical Doctor] - As Soon As Possible Additional Instructions: If you develop a fever, shortness of breath, chest pain, new or worsening symptoms - please call your PCP or go to the ED immediately. Your urine test was positive in the clinic. We have drawn a blood test to confirm this. Please follow up with OBGYN to discuss options and for further evaluation - Billing Disposition and Condition Condition: STABLE Disposition: Home
[2019-01-18 18:24] VITALS: BP 114/63
--- NOTE | 2019-01-18 19:12 | CONSULT ---
Consult Consult: I supervised the care of the PA and performed a hx and physical on this patient. Hx: +preg test at age 48. Growing lower abdomen. No menses since ~ Sep. PE: Gravid appearing abd. Nontender Plan: + Urine preg. Bedside US performed. 14w1d by BPD, 14w3d by femur length. F/U OBGYN.
== END 2019-01-18 19:03 | disposition home or self-care (01) ==
LOC: UCEAST 18:01
DX: Z32.01 Encounter for pregnancy test, result positive (principal)
CPT/HCPCS: 36415; 84702; 99212; G0463

== ENCOUNTER 2019-07-13 08:56 | Inpatient (IN) | payer OTHER ==
[~2019-07-13 08:56] MED LIST: ceFOXitin 2 GM IVPREMIX* 2 GM/50 ML BAG IVPB SCH
--- OUTSIDE RECORDS SUMMARY | 2019-07-13 08:59 | XMS REPORT | Continuity of Care Document ---
:1970 External Reference #:[id number] Author Name Rosalia Benavides MD Address [address] [place] [address] Care Team Providers Name Role Phone Chiqui Alves Care Team Information Active Directory Specialist [phone] Problems Description No Information Available Social History Type Date Description Comments Sex Unknown Cigarette Use Does Not Smoke Cigarettes ETOH Use Does Not Drink Alcohol Recreational Drug Use Does Not Use Drugs Tobacco Use Start: Unknown Patient has never smoked Smoking Status Reviewed: 07/06/19 Patient has never smoked Allergies, Adverse Reactions, Alerts Description No Known Drug Allergies Medications Active Medications SIG Qnty Indications Ordering Provider Date 1 by mouth every Unknown Tablets day Medications Administered in Office Medication SIG Qnty Indications Ordering Provider Date PT SCRN Tbco Id as Non User Rosalia Benavides MD 07/06/2019 Injection Immunizations CPT Code Status Date Vaccine Lot # [id number] Given 05/25/2019 Tetnus, Diptheria Toxoids And Acellular Pertussis, 2E3EH PT > 7Yrs Old [id number] Given 05/25/2019 Influenza Vaccine Quadrivalent Preser/Antibiotic [id number] Free Im Use Vital Signs Date Vital Result Comment 07/06/2019 2:57pm BP Systolic 104 mmHg BP Diastolic 58 mmHg Height 62.5 inches 5'2.50" Weight 150.00 lb BMI (Body Mass Index) 27.0 kg/m2 3 Parity 2 01/26/2019 1:15pm BP Systolic 128 mmHg BP Diastolic 72 mmHg Height 62.5 inches 5'2.50" Weight 114.00 lb BMI (Body Mass Index) 20.5 kg/m2 3 Parity 2 Results Test Acquired Date Facility Test Result H/L Range Note Laboratory test 06/29/2019 [facility] Genital For SEE RESULT [address] [place] [address] GRP B Strep BELOW [phone] Only Laboratory test 04/20/2019 [facility] Glucose 1 HR 98 mg/dL Normal 70-160 [address] [place] [address] Post Prandial [phone] CBC With No 04/20/2019 [facility] White Blood 10.1 Normal 3.5- 10.8 [place] [address] Count 10^3/uL [phone] Red Blood Count 3.87 10^6/uL Normal 3.70-4.87 Hemoglobin 12.9 g/dL Normal 12.0-16.0 Hematocrit 38 % Normal 35-47 Mean Corpuscular Volume 97 fL Normal 80-97 Mean Corpuscular Hemoglobin 33 pg High 27-31 Mean Corpuscular HGB Conc 34 g/dL Normal 31-36 Red Cell Distribution Width 14 % Normal 10-15 Platelet Count 216 10^3/uL Normal 150-450 Mean Platelet Volume 10.0 fL Normal 7.4-10.4 Urine Culture And 03/23/2019 [facility] Urine Culture SEE RESULT 3 [place] [address] BELOW [phone] GC/Chlamydia Dna 02/20/2019 [facility] Chlamydia [place] [address] trachomatis Rna [phone] Neisseria gonorrhoeae (GC) Rna Negative Negative Urine Drug 02/20/2019 [facility] Urine Amphetamine Negative ng/ mL 4 Comp [address] [place] [address] [phone] Urine Barbiturates Negative ng/mL 5 Urine Benzodiazepines Negative ng/mL 6 Urine Cocaine Negative ng/mL 7 Urine Phencyclidine Negative ng/mL Cutoff: 25 Urine Tetrahydrocannabinol Negative ng/mL Cutoff: 50 8 Creatinine, Urine 56.7 mg/dL Specific [place] 1.015 pH 5.4 Oxidants Negative 9 Adulterants Comment Normal Codeine, Ur Not Detected ng/mL Cutoff: 25 10 Jzeuogp-1-yoel-glucuronide, Ur Not Detected ng/mL 11 Morphine, Ur Not Detected ng/mL Cutoff: 25 12 Pzfdvrki-3-yjob-glucuronide, U Not Detected ng/mL 13 6-monoacetylmorphine, Ur Not Detected ng/mL Cutoff: 25 14 Hydrocodone, Ur Not Detected ng/mL Cutoff: 25 15 Norhydrocodone, Ur Not Detected ng/mL Cutoff: 25 16 Dihydrocodeine, Ur Not Detected ng/mL Cutoff: 25 17 Hydromorphone, Ur Not Detected ng/mL Cutoff: 25 18 Tpwjwvryykokz9dmogmcwnssqsijy Not Detected ng/mL 19 Oxycodone, Ur Not Detected ng/mL Cutoff: 25 20 Noroxycodone, Ur Not Detected ng/mL Cutoff: 25 21 Oxymorphone, Ur Not Detected ng/mL Cutoff: 25 22 Oiqpftxzjwo-8-jcxl-glucuronide Not Detected ng/mL 23 Noroxymorphone, Ur Not Detected ng/mL Cutoff: 25 24 Fentanyl, Ur Not Detected ng/mL Cutoff: 2 25 Norfentanyl, Ur Not Detected ng/mL Cutoff: 2 26 Meperidine, Ur Not Detected ng/mL Cutoff: 25 27 Normeperidine, Ur Not Detected ng/mL Cutoff: 25 28 Naloxone, Ur Not Detected ng/mL Cutoff: 25 29 Boauhopp-4-tekv-glucuronide, U Not Detected ng/mL 30 Methadone, Ur Not Detected ng/mL Cutoff: 25 31 Eddp, Ur Not Detected ng/mL Cutoff: 25 32 Propoxyphene, Ur Not Detected ng/mL Cutoff: 25 33 Norpropoxyphene, Ur Not Detected ng/mL Cutoff: 25 34 Tramadol, Ur Not Detected ng/mL Cutoff: 25 35 O-desmethyltramadol, Ur Not Detected ng/mL Cutoff: 25 36 Tapentadol, Ur Not Detected ng/mL Cutoff: 25 37 N-desmethyltapentadol, Ur Not Detected ng/mL Cutoff: 50 38 Vohogvuuqu-llgf-nznqnxndfre, U Not Detected ng/mL 39 Buprenorphine, Ur Not Detected ng/mL Cutoff: 5 40 Norbuprenorphine, Ur Not Detected ng/mL Cutoff: 5 41 Norbuprenorphine glucuronide Not Detected ng/mL Cutoff: 20 42 Opioid Interpretation See Comment 43 HIV 4TH 01/26/2019 [facility] HIV 4th [place] [address] Generation [phone] Varicella Zoster 01/26/2019 [facility] Varicella-Zoste Positive [address] [place] [address] r IgG Antibody [phone] Varicella IgG Antibody Index 3.5 45 Laboratory test 01/26/2019 [facility] TSH 2.05 mcIU/mL Normal 0.34-5.60 [address] [place] [address] [phone] T4 Free 0.68 ng/dL Normal 0.61-1.12 47 Afp,Screen 01/26/2019 [facility] Results Summary [place] [address] [phone] Neural Tube Defect Estimate SEE BELOW 48 Collection Date 01/26/19 Maternal Date of 74 Calculated Age At NORMAN 49 years Maternal Weight 114 lbs Insulin Dependent Diabetes No Current Cigarette Smoking Stat non-smoker Patient Race non-Black Number of Fetuses 1 Number of Chorions Monochorionic Ivf N o Prev Preg w/Neural Tube Defect N o Patient/Father of Baby Has NTD N o Initial Or Repeat Testing Initial testing NORMAN by U/S Scan 07/19/19 Physician Phone Number [phone] GA On Collection by U/S SEE BELOW wk,d 49 GA Used In Risk Estimate Scan estimate Afp 32.2 ng/mL Afp MoM 0.95 MoM <2.50 Interpretation See Comment 50 Additional Comments See Comment 51 Recommended Follow Up None. General Test Information See Comment 52 Lead 01/26/2019 [facility] Lead,Venous, B < 1.0 g/dL 0.0- 4.9 [address] [place] [address] [phone] Venous/Capillary Venous Submitting Laboratory Phone [phone] 54 Type And Screen 01/26/2019 [facility] Patient [place] [address] [phone] Antibody Screen NEGATIVE CBC With No 01/26/2019 [facility] White Blood 8.9 10^3/uL Normal 3.5-10.8 [place] [address] Count [phone] Red Blood Count 3.85 10^6/uL Normal 3.70-4.87 Hemoglobin 12.5 g/dL Normal 12.0-16.0 Hematocrit 37 % Normal 35-47 Mean Corpuscular Volume 96 fL Normal 80-97 Mean Corpuscular Hemoglobin 33 pg High 27-31 Mean Corpuscular HGB Conc 34 g/dL Normal 31-36 Red Cell Distribution Width 14 % Normal 10.5-15 Platelet Count 246 10^3/uL Normal 150-450 Mean Platelet Volume 9.5 fL Normal 7.4-10.4 PNL No 01/26/2019 [facility] Rubella Screen Immune Immune [address] [place] [address] [phone] Hemoglobin A1c 4.8 % Normal 4.0-5.6 56 Hepatitis B Surface Ag Negative Negative 57 Syphillis Igg W/Reflex RPR Negative Negative 58 1 SEE RESULT BELOW Name: ELLIE WREN : [address]: Ángel Moore DO Acct: [id number] Unit: [id number] AGE: 49 Location: [facility] Re06/29/19 SEX: F Status: REG REF SPEC: [id number] DARIO: 06/29/[address]: Ángel Moore DO REQ: [id number] RECD: 06/29/19125 STATUS:COMP _ SOURCE: CER/VAG/RE SPDESC: ORDERED: Grp B Strp Scrn COMMENTS: [id number] QUERIES: Is Patient Penicillin Allergic? N Is patient penicillin allergic and/or sensitivities needed? N Provider Requisition # [id number]_ Procedure Result Reported Site Group B Strep Culture Screen Final 07/01/19- 1037 ML Group B Strep Screen Negative * ML - Main Lab . END OF REPORT DEPARTMENT OF PATHOLOGY, [address] [place] [address] Tray Arroyo M.D. Director [facility] # [id number] 2 [id number] SEE RESULT BELOW Name: ELLIE WREN : [address]: Joi Chowdhury CNM Acct: [id number] Unit: [id number] AGE: 48 Location: [facility] Re03/23/19 SEX: F Status: REG REF SPEC: [id number] DARIO: 03/23/19-[address]: Joi Chowdhury [facility] REQ: [id number] RECD: 03/24/19 STATUS: COMP _ SOURCE: URINE SPDCONTRA [facility]: ORDERED: Urine Culture COMMENTS: [id number] Urine Source: Random Procedure Result Reported Site Urine Culture Final 03/25/19- 1258 ML No Growth (<1,000 CFU/mL) * ML - Main Lab . END OF REPORT DEPARTMENT OF PATHOLOGY, [address] [place] [address] Tray Arroyo M.D. Director [facility] # [id number] 4 REFERENCE VALUE Cutoff: 500 5 REFERENCE VALUE Cutoff: 200 6 REFERENCE VALUE Cutoff: 100 7 REFERENCE VALUE Cutoff: 150 8 ADDITIONAL INFORMATION This report is intended for use in clinical monitoring or management of patients. It is not intended for use in employment-related testing. 9 REFERENCE VALUE Cutoff: 200 mg/L 10 Tylenol 3 11 Metabolite of codeine REFERENCE VALUE Cutoff: 100 12 Syeda Charles, Contin; Also a minor metabolite (10%) of codeine and can be seen in low concentrations (<2,000 ng/mL) with poppy seed ingestion. 13 Metabolite of morphine REFERENCE VALUE Cutoff: 100 14 Metabolite of heroin 15 Lortab, [place], Vicodin; Also a very minor metabolite of codeine and impurity (<1%) of oxycodone. 16 Metabolite of hydrocodone 17 Metabolite of hydrocodone 18 Dilaudid, Exalgo; Also a metabolite of hydrocodone and a minor (<5%) metabolite of morphine. 19 Metabolite of hydromorphone REFERENCE VALUE Cutoff: 100 20 Endocet, Percocet, Oxycontin 21 Metabolite of oxycodone 22 Numorphan, Opana; Also a metabolite of oxycodone. 23 Metabolite of oxymorphone REFERENCE VALUE Cutoff: 100 24 Metabolite of oxymorphone 25 Actiq, Duragesic, Fentora 26 Metabolite of fentanyl 27 Demerol 28 Metabolite of meperidine 29 Narcan 30 Metabolite of naloxone REFERENCE VALUE Cutoff: 100 31 Dolophine 32 Metabolite of methadone 33 Darvon, Darvocet 34 Metabolite of propoxyphene 35 Tradol, Ultram, Ultracet 36 Metabolite of tramadol 37 Nucynta 38 Metabolite of tapentadol 39 Metabolite of tapentadol REFERENCE VALUE Cutoff: 100 40 Buprenex, Suboxone 41 Metabolite of buprenorphine 42 Metabolite of buprenorphine 43 No opioids were detected. The absence of expected drug(s) and/or drug metabolite(s) may indicate non-compliance, altered pharmacokinetics, inappropriate timing of specimen collection relative to drug administration, diluted/adulterated urine, or limitations of testing. ADDITIONAL INFORMATION This test was developed and its performance characteristics determined by [facility] in a manner consistent with CLIA requirements. This test has not been cleared or approved by the U.S. Food and Drug Administration. Test Performed by: [facility] [email or web address] [address] 44 Results suggest response to immunization or prior exposure to the virus. REFERENCE VALUE Vaccinated: Positive (>=1.1 AI) Unvaccinated: Negative (<=0.8 AI) 45 Test Performed by: [facility] [address] 46 [id number] RESULT: 49 RESULT: 50 RESULT: Screen negative for neural tube defects. 51 RESULT: Reviewed by Kalen Mccloud M.D. 52 This screening provides an estimation of risk, not a diagnosis. Incorrect or incomplete information may significantly alter results. Results may be unreliable in twin pregnancies with a demise. Results are not available for pregnancies with triplets and higher-order multiples. A positive result occurs when the AFP MoM equals or exceeds 2.5. Screen results and family history influence individual risk. If there is a family history of a neural tube defect, chromosome abnormality, or other inherited condition, consider the option of a genetic consultation. For further information, please contact the maternal screening laboratory at . ADDITIONAL INFORMATION This test was developed and its performance characteristics determined by [facility] in a manner consistent with CLIA requirements. This test has not been cleared or approved by the U.S. Food and Drug Administration. Test Performed by: [facility] - [address] [address] 53 ADDITIONAL INFORMATION Testing performed by Inductively Coupled Plasma-Mass Spectrometry (ICP-MS). This test was developed and its performance characteristics determined by [facility] in a manner consistent with CLIA requirements. This test has not been cleared or approved by the U.S. Food and Drug Administration. 54 Test Performed by: [facility] [address] [place] [address] 55 [id number] Therapeutic target for the treatment of diabetes mellitus patients is <7% HBA1C, and in selective patients <6.0%. Please refer to [place] [employer] diabetic care guidelines for further information. 57 [id number] Procedures Date Code Description Status 07/06/2019 08111 Non-Stress Test Completed 02/20/2019 01260 Echography Uterus Complete Completed 01/26/2019 10827 Echography Uterus Limited Completed 08/26/2016 10022310 Mammogram Completed Medical Devices Description No Information Available Encounters Type Date Location Provider Dx Diagnosis Office Visit 07/06/2019 [facility] Rosalia Benavides MD Z01.818 Encounter for other 11:30a preprocedural examination O34.211 Matern care for low transverse scar from prev del O09.523 Supervision of elderly multigravida, third trimester Assessments Date Code Description Provider 07/06/2019 Z01.818 Encounter for other preprocedural Rosalia Benavides MD examination 07/06/2019 O34.211 Maternal care for low transverse scar from Rosalia Benavides MD previous delivery 07/06/2019 O09.523 Supervision of elderly belindaavida, third Rosalia Benavides MD trimester 06/29/2019 O09.523 Supervision of elderly multigravida, third Ángel Moore JR, DO trimester 06/19/2019 O09.523 Supervision of elderly ednagravida, third Rosalia Benavides MD trimester 06/19/2019 O34.211 Maternal care for low transverse scar from Rosalia Benavides MD previous delivery 05/25/2019 Z23 Encounter for immunization Ángel Moore JR, DO 05/25/2019 O09.523 Supervision of elderly ednagravida, third Ángel Moore JR, DO trimester 05/11/2019 O09.523 Supervision of elderly ednagravida, third Joi Chowdhury CNM trimester 04/20/2019 Z36.9 Encounter for screening, Lynne Gonsalves MD unspecified 04/20/2019 Z34.83 Encounter for supervision of other normal Saji Vigil M.D. , third trimester 04/20/2019 Z36.9 Encounter for screening, Laboratory unspecified 03/23/2019 O09.522 Supervision of elderly multigravida, second JEANE Mustafa trimester 02/20/2019 O09.522 Supervision of elderly multigravida, second Rosalia Benavides MD trimester 02/20/2019 Z36.3 Encounter for screening for Rosalia Benavides MD malformations 02/20/2019 Z36.3 Encounter for screening for Ultrasounds malformations 01/26/2019 Z36.9 Encounter for screening, Lynne Gonsalves MD unspecified 01/26/2019 Z34.82 Encounter for supervision of other normal Lynne Gonsalves MD , second trimester 01/26/2019 O09.522 Supervision of elderly multigravida, second Renee Addison CNM trimester 01/26/2019 Z36.9 Encounter for screening, Laboratory unspecified 01/26/2019 Z34.82 Encounter for suprvsn of normal , Ultrasounds second trimester Plan of Treatment Future Appointment(s):08/17/2019 1:30 pm - Rosalia Benavides MD at [facility] 11:15 am - Cyndi Muñoz CNM at [facility]07/13/2019 11:00 am - Rosalia Benavides MD at [facility] O R109/12/2018 11:00 am - Lynne Gonsalves MD at [place] 5862409/05/2018 - Rosalia Benavides MDZ01.818 Encounter for other preprocedural examinationComments:We discussed risks of surgery for delivery including but not limited to injury to bowel, bladder, ureters, nerves, and blood vessels. We discussed bleeding and infection risks and possible need for transfusion. Patient understands risk of wound complications including breakdown and hernia. She understands the risk of deep venous thrombosis and sequelae. Reasons for surgery and the benefits derived were reviewed. Patient understands the alternatives and has had opportunity to ask questions with appropriate answers given.We discussed permanent sterilization, to be done at the time of . She understands there is a failure rate of less than 1% , and that if she does get , it is more likely to be ectopic. She desires to proceed with the BTL.Length of typical hospital stayand full recovery if no complications occur discussed.Preventative measures for certain complications such as infection and DVT were discussed.Postop medications ( percocet, ibuprofen) will be sent to pharmacy when she is discharged as needed.Pt is to not eat after midnight the night before.O34.211 Maternal care for low transverse scar from previous cpmojtncX07.523 Supervision of elderly multigravida, third trimester Functional Status Description No Information Available Mental Status Description No Information Available Referrals Refer to Reason for Referral Status Appt Date Center Patient desires amnio due to age, Patient Declined 2018 carrier screening, uncertainty of NIPT [address] [place].[address] [phone]
[2019-07-13] MEDS ORDERED: Morphine PF AMP (0.5MG/ML)* 5 MG/10 ML AMP ONE (10:32)
[2019-07-13] MEDS ORDERED: fentaNYL* 50 MCG/ML 2 ML VIAL (100 MCG VIAL) ONE (10:32)
[2019-07-13] MEDS ORDERED: Phenylephrine 40 MCG/ML SYRINGE ONE (10:48)
[2019-07-13] MEDS ORDERED: EPHEDrine (Pressors)* 50 MG/ML VIAL ONE (10:49)
[2019-07-13] MEDS ORDERED: OXYTOCIN* 10 UNITS/ML 1 ML VIAL ONE (10:52)
[2019-07-13] MEDS ORDERED: Acetaminophen TAB* 325 MG PO STA (11:18)
[2019-07-13] MEDS ORDERED: oxyCODONE TAB* 5 MG TAB PO PRN (11:18)
[2019-07-13] MEDS ORDERED: Ondansetron INJ* 2 MG/ML VIAL IV PRN (11:18)
[2019-07-13] MEDS ORDERED: Naloxone* 0.4 MG/ML 1 ML VIAL IV PRN (11:18)
[2019-07-13] MEDS ORDERED: PROCHLORPERAZINE INJ 5 MG/ML 2 ML VIAL IV PRN (11:18)
[2019-07-13] MEDS ORDERED: Acetaminophen TAB* 325 MG PO ONE (12:00)
[2019-07-13] MEDS ORDERED: Witch Hazel PAD* JAR TOPICAL PRN (12:29)
[2019-07-13] MEDS ORDERED: Lactated Ringers 1000 ML Bag* 1,000 ML IV SCH (13:00)
[2019-07-13] MEDS: Ibuprofen TAB* 400 MG PO SCH ×3 (14:49→23:05)
--- NOTE | 2019-07-13 15:26 | OP ---
DATE OF OPERATION: 07/13/19 - ROOM #117 DATE OF : 74 SURGEON: Rosalia Benavides MD GLAZIER STAINED GLASS: Dr. Gonsalves. ANESTHESIOLOGIST: Dr. Sloan. ANESTHESIA: Spinal. PRE-OP DIAGNOSIS: A 39 weeks gestation with history of 2 prior sections, satisfied parity, and advanced maternal age. POST-OP DIAGNOSIS: A 39 weeks gestation with history of 2 prior sections, satisfied parity, and advanced maternal age. OPERATIVE PROCEDURE: Repeat low transverse section and bilateral tubal ligation. ESTIMATED BLOOD LOSS: 600 cc. URINE OUTPUT: 110 cc. IV FLUIDS: 1700 cc lactated Ringer's. MATERIALS TO LAB: Cord blood and bilateral tube segments. INDICATIONS: This patient is a 49-year-old 3, para 2, who had a complicated by advanced maternal age and history of two prior sections. The patient desired to have permanent sterilization performed and she was counseled and consented for the repeat section and bilateral tubal ligation. FINDINGS: Normal-appearing uterus, fallopian tubes, and ovaries. Delivery was productive of a female weighing 6 pounds 15 ounces with Apgars of 9 and 9. Time of delivery was 1107. COMPLICATIONS: None. DESCRIPTION OF PROCEDURE: The risks, benefits, and alternatives were described to the patient, and informed consent was obtained. The patient was taken to the operating room with IV running, where spinal anesthesia was induced and found to be adequate. The patient was prepped and draped in normal sterile fashion in the dorsal supine position with a leftward tilt. A Pfannenstiel skin incision was made with a scalpel through the patient's previous incision. This was carried down to the underlying fascia using the scalpel. The fascia was scored in the midline, and the incision was extended using Lipscomb scissors. The fascia was dissected off the underlying rectus muscles using blunt and sharp dissection. The rectus muscles were in the midline using dissection with a Leatha clamp. The peritoneum was then entered bluntly. A bladder blade was placed. A bladder flap was created sharply using Metzenbaum scissors. A low transverse uterine incision was then made with the scalpel. This was carried down to the amniotic membranes. The membranes were then ruptured, productive of clear fluid. The uterine incision was extended using blunt traction. The head was elevated to the level of the incision, and, with fundal pressure, the head delivered without difficulty. The shoulders then were also both delivered and the body followed. The infant had excellent tone and cried immediately on delivery. The cord was doubly clamped and cut. The infant was then handed to the awaiting catechist. Cord blood was collected. The placenta was delivered with manual extraction. The uterus was then exteriorized and cleared of all clots and debris. The uterine incision was then reapproximated using 0 Vicryl in a running-locked fashion. A second layer of imbricating 0 Vicryl sutures was then also placed for good hemostasis. The distal half of the right fallopian tube was grasped with a long Leatha clamp. This was tied off with 2-0 Vicryl, followed by a 2-0 Vicryl suture ligature. The distal tube with fimbria was then excised with Metzenbaum scissors with good hemostasis. The same was done on the left side, again without complication. The posterior cul-de-sac was irrigated with saline. The uterus was then returned to the abdomen. The incision was reinspected and still noted to be hemostatic. The peritoneum was closed with 3- 0 Vicryl in a running fashion. The fascia was closed with 0 Vicryl in a running fashion. The subcutaneous tissues were copiously irrigated and made hemostatic using the Bovie. The skin was then closed with 4-0 Monocryl. Mastisol and steristrips were then applied. A sterile bandage was then placed over the incision. The patient tolerated the procedure well. Sponge, lap, and needle counts were correct x2. [id number] #: [id number] MTDD
[2019-07-13] MEDS: Docusate CAP* 100 MG PO SCH ×2 (17:07→20:35)
[2019-07-13] MEDS: Simethicone TAB* 80 MG TAB.CHEW PO SCH ×3 (17:07→20:36)
[2019-07-14] MEDS ORDERED: oxyCODONE/Acetamin 5/325 MG* TAB PO PRN ×2 (02:31)
[2019-07-14] MEDS: Ibuprofen TAB* 400 MG PO SCH ×3 (04:34→17:49)
[2019-07-14] MEDS: Acetaminophen TAB* 325 MG PO PRN ×4 (04:34→18:01)
[2019-07-14 08:08] LABS: ABS Eosinophils 0.2 10^3/ul (0-0.6); ABS Lymphocytes 1.8 10^3/ul (1.0-4.8); ABS Monocytes 0.9 10^3/ul (0-0.8); Eosinophil % 1.6 %; Hematocrit 36 % (35-47); Hemoglobin 12.2 g/dL (12.0-16.0); Lymphocyte % 14.9 %; Mean Corpuscular HGB Conc 34 g/dL (31-36); Mean Corpuscular Hemoglobin 32 pg (27-31); Mean Corpuscular Volume 93 fL (80-97); Mean Platelet Volume 8.8 fL (7.4-10.4); Platelet Count 218 10^3/uL (150-450); Red Blood Count 3.85 10^6 /uL (3.70-4.87); Red Cell Distribution Width 14 % (10-15); White Blood Count 11.8 10^3/uL (3.5-10.8)
[2019-07-14] MEDS: Docusate CAP* 100 MG PO SCH ×3 (08:50→20:04)
[2019-07-14] MEDS: Simethicone TAB* 80 MG TAB.CHEW PO SCH ×4 (08:50→20:04)
[2019-07-14] MEDS ORDERED: Ferrous Gluconate TAB* 324 MG TAB PO SCH (09:00)
[2019-07-15] MEDS: Acetaminophen TAB* 325 MG PO PRN ×3 (01:54→12:29)
[2019-07-15] MEDS ORDERED: Ibuprofen TAB* 400 MG ONE (04:30)
[2019-07-15] MEDS ORDERED: Ibuprofen TAB* 600 MG ONE (04:35)
[2019-07-15] MEDS: Ibuprofen TAB* 600 MG PO PRN ×2 (04:35→11:15)
[2019-07-15] MEDS: Docusate CAP* 100 MG PO SCH ×2 (08:43→14:12)
[2019-07-15] MEDS: Simethicone TAB* 80 MG TAB.CHEW PO SCH ×2 (08:43→12:11)
[2019-07-15 12:12] VITALS: BP 99/53
== END 2019-07-15 14:18 | disposition home or self-care (01) | DRG 785 ==
LOC: MCHOB 08:56
PROVIDERS: ADMIT Obstetrics & Gynecology; ATTEND Obstetrics & Gynecology
PROC: 0UB70ZZ Excision of Bilateral Fallopian Tubes, Open Approach (ICD-10-PCS; 2019-07-13)
PROC: 10D00Z1 Extraction of Products of Conception, Low, Open Approach (ICD-10-PCS; principal; 2019-07-13 11:00)
DX: O34.211 Maternal care for low transverse scar from previous cesarean delivery (principal); Z3A.39 39 weeks gestation of pregnancy; Z37.0 Single live birth; Z30.2 Encounter for sterilization
CPT/HCPCS: 36415; 85025; 88302; A9270-GY; J0694; J2590; J3010